=== PATIENT | male | born 1985 | race Caucasian/White ===

== ENCOUNTER → 2022-07-07 | Day surgery (SDC) | payer MEDICAID ==
[~2022-07-07] MED LIST: Dexamethasone 4 MG/ML SDV ONE; Flumazenil 0.1 MG/ML 10 ML MDV ONE; Ketamine 200 MG/20 ML MDV ONE; Ketorolac 30 MG/ML SDV ONE; Lactated Ringers 1,000 ML IV SCH; Lactated Ringers 1,000 ML ONE; Lidocaine 1% with EPINEPHrine 1:100,000 20 ML MDV INJECT ONE; Midazolam 1 MG/ML 2 ML SDV ONE; Ondansetron 4 MG/2 ML SDV ONE; Propofol 200 MG/20 ML SDV ONE; ceFAZolin 2 GM Vial IVPUSH ONE; fentaNYL 50 MCG/ML SDV ONE
[2022-07-07 12:45] VITALS: BP 122/60; PULSE 70
== END ==
LOC: CC.SDS 09:45
PROVIDERS: ATTEND Surgery
DX: K42.9 Umbilical hernia without obstruction or gangrene (principal); J45.909 Unspecified asthma, uncomplicated; Z79.899 Other long term (current) drug therapy; Z98.890 Other specified postprocedural states
CPT/HCPCS: J1100; J1885; J2250; J2405; J2704; J3010; J3490; J7120